=== PATIENT | female | born 1970 | race Caucasian/White ===

== ENCOUNTER → 2016-05-28 | Outpatient (CLI) | payer BC, OTHER ==
--- NOTE | 2016-05-29 08:57 | RAD ---
EXAM DESCRIPTION: Right knee series. CLINICAL HISTORY: Right knee pain. COMPARISON: None. TECHNIQUE: Three views of the right knee are submitted for interpretation. FINDINGS: Joint space loss of the medial compartment with osteophyte formation. The lateral compartment and patellofemoral joint are unremarkable.There is no fracture, dislocation, obvious joint effusion or suspicious radiopaque foreign body. Soft tissues are unremarkable. IMPRESSION: Degenerative change of the medial compartment of right knee. Remaining study is unremarkable. Electronically signed by: Maged Finch MD 05/29/2016 08:56
== END | disposition home or self-care (01) ==
LOC: RAD 15:14
PROVIDERS: ATTEND Nurse Practitioner Family
DX: M25.561 Pain in right knee (principal)

== ENCOUNTER → 2016-06-16 | Outpatient (CLI) | payer BC, OTHER ==
--- NOTE | 2016-06-16 16:41 | MRI ---
EXAM DESCRIPTION: Knee,Right CLINICAL HISTORY: PAIN COMPARISON: None Available. TECHNIQUE: MRI of the knee is performed according to our usual protocol with multiplanar multi sequence imaging. FINDINGS: Small right knee joint effusion. There is also a small popliteal cyst. Within the popliteal cyst there is a rounded 5 mm calcified loose body related to the arthritic changes in this patient's knee joint. Assessment of articular surfaces demonstrates significant patellofemoral arthritis with extensive mixed grade 3/4 chondrosis particularly severe involving the lateral articular facet of the patella but present on both sides of the joint. There is a prominent grade 4 defect in the central inferior aspect of the trochlea. Mixed grade 2/3 chondrosis is present in the medial compartment with relative preservation of the lateral compartment. Cruciate and collateral ligaments intact. Assessment of the menisci shows slight truncation of the apex of the mid body of the medial meniscus seen on coronal imaging which indicates fraying of the surface but no full-thickness tear of either meniscus is observed. IMPRESSION: 1. Severe patellofemoral arthritis with likely related loose body in the popliteal cyst 2. Marginal fraying of the mid body of the medial meniscus Electronically signed by: Kye Norris MD 06/16/2016 4:40 PM [employer]
== END | disposition home or self-care (01) ==
LOC: MRI 10:59
PROVIDERS: ATTEND Nurse Practitioner Family
DX: M17.11 Unilateral primary osteoarthritis, right knee (principal)